=== PATIENT | male | born 2000 | race Caucasian/White ===

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

== ENCOUNTER 2024-05-18 10:20 | Emergency (ER) | payer BC, SELFPAY ==
[2024-05-18 10:41] VITALS: BP 136/61; PULSE 75; RESP 16; TEMP 36.9; O2SAT 100
--- NOTE | 2024-05-18 10:42 | ED.DENTAL ---
HPI - Dental/Oral General Chief complaint: Dental/Oral Stated complaint: lump on jawline and under jawline Time Seen by Provider: 05/18/24 10:45 Source: patient Mode of arrival: ambulatory Limitations: no limitations History of Present Illness HPI Narrative: Paulie is a 23-year-old male patient presenting to the clinic today with complaints of swelling lump on the jawline and under his right jaw line. He reports that the lump on his jawline has been there for a couple years and gets larger and smaller. But over the past few days noticed some swelling under the jaw line. Denies any fevers, chills, body aches. Denies sore throat or any URI symptoms. Related Data Home Medications ?Medication ?Instructions ?Recorded ?Confirmed ?Last Taken ?Type No Home Medications 08/23/20 08/24/20 Unknown History Allergies Allergy/AdvReac Type Severity Reaction Status Date / Time No Known Allergies Allergy Unverified 08/13/11 12:32 Review of Systems Review of Systems: Pertinent positives per HPI. Patient denies any fever, chills, rash, headache, visual changes, dizziness, cough, shortness of breath, chest pain, palpitations, nausea, vomiting, diarrhea, constipation, abdominal pain, or any urinary issues. PMFSH Past Medical History Medical History No significant medical problems Surgical History Surgical History No significant past surgical history Family History Family History Other No significant family history Social History Social History Living arrangements: with family Comments At the time of my signature, I reviewed and agree with the nursing past medical, surgical, social, and family history. There is no relevant family history pertinent to the patient complaint. Exam Narrative: General: Well-developed, well nourished, in no apparent distress Head: Normocephalic, atraumatic Eyes: Pupils equally round and reactive to light bilaterally, EOM intact, sclera and conjunctive clear, no discharge, lids normal Ears: TMs intact and clear, ear canals clear, no drainage, grossly hearing normal. Nose: Nares patent, no discharge, no inflammation, no sinus tenderness. Mouth: Oral pharynx without lesions or masses, good dentition, MMM. Neck: Supple, trachea midline, no enlargement of anterior or posterior cervical nodes, mild tenderness over the submandibular gland, no thyroid masses or goiter palpable. Cardio: Regular rate and rhythm, s1 and s2 normal, no murmur appreciated. Resp: Clear to auscultation bilaterally, no rhonchi, rales, wheezing or rubs Course Course Emergency Course: Portions of this record may have been created with voice recognition software. Level of Care: Express Care Visit Vital Signs Vital signs: Vital Signs Temperature 36.9 C 05/18/24 10:41 Pulse Rate 75 05/18/24 10:41 Respiratory Rate 16 05/18/24 10:41 Blood Pressure 136/61 05/18/24 10:41 Pulse Oximetry 100 05/18/24 10:41 Temperature 36.9 C 05/18/24 10:41 Pulse Rate 75 05/18/24 10:41 Respiratory Rate 16 05/18/24 10:41 Blood Pressure 136/61 05/18/24 10:41 Pulse Oximetry 100 05/18/24 10:41 Vital signs reviewed MDM - Dental/Oral MDM Narrative Medical decision making narrative: At the time of visit patient is resting comfortably on the exam table. Patient appears to be nontoxic. Plan: Exam is normal. I suspect patient has had some submandibular lymph node swelling. Area is mildly tender. Recommend observation and following up with PCP/dentist. Supportive measures were discussed with the patient and they voiced understanding discharge instructions and agrees to treatment plan. Return precautions reviewed Differential Diagnosis Differential diagnosis: Likely other (Salivary gland obstruction, lymphadenitis, lymphedema, viral infection) Discharge Plan Discharge Clinical Impression: Swelling of lymph node Patient Disposition: Home, Self-Care Condition: Stable Instructions: Antibiotic Form, Lymphadenopathy (ED), Sialoadenitis (ED) Additional Instructions: May take Tylenol/Motrin as needed for pain or fever May massage the area to help alleviate pain May apply cool or warm compress to the affected area to help alleviate pain May try sour candies to see if this helps alleviate symptoms Follow-up with your primary care doctor/dentist Patient Language: Belarusian Prescriptions: No Action No Home Medications omeprazole 40 mg capsule,delayed release(/EC) 40 mg PO DAILY Qty: 30 1RF Follow-up/Referrals: PHYSICIAN,MILITARY PAY CLERK [Primary Care Provider] - Time of Disposition: 10:51 Quality NIHSS Nursing Documentation ED NIHSS nursing documentation: reviewed/agree
== END 2024-05-18 10:57 | disposition home or self-care (01) ==
PROVIDERS: Emergency Provider Nurse Practitioner Family
DX: R59.9 Enlarged lymph nodes, unspecified (principal)
CPT/HCPCS: 99211; G0463